=== PATIENT | female | born 2000 | race Hispanic/Latino ===

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

== ENCOUNTER 2021-08-27 17:41 | Emergency (ER) | payer MEDICARE, OTHER ==
[~2021-08-27] VITALS: Ht 157.5 cm; Wt 54.4 kg
[~2021-08-27 17:41] MED LIST changes: +IBUPROFEN400 MG PO; +ROBAXIN-750750 MG PO
[2021-08-27] MEDS ORDERED: DOXYCYCLINE HY100 MG PO (18:40)
[2021-08-27] MEDS ORDERED: CIPRO500 MG PO (18:44)
[2021-08-27] MEDS ORDERED: CEFTRIAXONE 1 GM VIAL IM ONE (18:45)
[2021-08-27] MEDS ORDERED: ONDANSETRON ODT4 MG PO (18:46)
== END 2021-08-27 19:25 | disposition home or self-care (01) ==
LOC: FSED 17:50
DX: R30.0 Dysuria (principal); N39.0 Urinary tract infection, site not specified; R10.9 Unspecified abdominal pain; Z72.51 High risk heterosexual behavior
CPT/HCPCS: 99283; J0696